=== PATIENT | female | born 1955 | race Hispanic/Latino ===

== ENCOUNTER → 2024-08-27 | Outpatient (CLI) | payer OTHER, MEDICAID ==
[~2024-08-27] MED LIST: ALBU6.7H14 IH; AMLO-915 PO; ASPI-1005 PO; ATOR40TA71 PO; FLUT16H NASAL; LISI10TA24 PO; LORA10CA9 PO; LOSA50TA64 PO; METF-444 PO
== END | disposition home or self-care (01) ==
LOC: LAB 07:59
PROVIDERS: ATTEND Internal Medicine
DX: I27.20 Pulmonary hypertension, unspecified (principal); R42 Dizziness and giddiness; Z95.0 Presence of cardiac pacemaker
CPT/HCPCS: 84484